=== PATIENT | male | born 1955 | race Caucasian/White ===

== ENCOUNTER 2017-06-01 09:18 | Emergency (ER) | payer OTHER ==
[2017-06-01 09:59] VITALS: BP 137/82
--- NOTE | 2017-06-01 10:28 | UC ---
Bite Injury/Animal HPI - HPI Summary HPI Summary: Pt presents with complaints of concern for retained tick part in right leg. Pt state felt a tick on his leg - pulled off yesterday. Pt states last evening he thought there was a retained part and so started digging. Pt unsure but concerned continues with retained part. Little discomfort Pt unsure when received last tdap PT states took 1 time doxy for tick bite earlier this week - states current wound tick was "crushed" while trying to remove and pt is concerned for lyme Not immunocompromised Pt's medications reviewed this visit - History of Current Complaint Chief Complaint: [place]CSkin Stated Complaint: TICK BITE Time Seen by Provider: 06/01/17 10:08 Hx Obtained From: Patient Severity Currently: None Onset/Duration: Gradual Onset Type of Bite: Wild Animal - Risk Factors Infection/Sepsis Risk Factors: Delay in Initial Treatment - Allergies/Home Medications Allergies/Adverse Reactions: Allergies Allergy/AdvReac Type Severity Reaction Status Date / Time No Known Allergies Allergy Verified 06/01/17 09:59 Home Medications: Home Medications Chlorthalidone TAB* [Hygroton TAB*] 50 mg PO DAILY 06/01/17 [History Confirmed 06/01/17] Ramipril CAP* [Altace CAP*] 10 mg PO DAILY 06/01/17 [History Confirmed 06/01/17] traZODone TAB* [Desyrel TAB*] 50 mg PO BEDTIME 06/01/17 [History Confirmed 06/01] PMH/Surg Hx/FS Hx/Imm Hx Previously Healthy: Yes - Surgical History Surgical History: None - Social History Occupation: Retired Lives: With Family Alcohol Use: Occasionally Substance Use Type: Marijuana Smoking Status (MU): Former Smoker Review of Systems Constitutional: Negative Skin: Other - erythema RLE All Other Systems Reviewed And Are Negative: Yes Physical Exam Triage Information Reviewed: Yes Vital Signs: Initial Vital Signs Temp 98.0 F 06/01/17 09:53 Pulse 69 06/01/17 09:53 Resp 18 06/01/17 09:53 BP 137/82 06/01/17 09:53 Pulse Ox 98 06/01/17 09:53 Eye Exam: Normal Eyes: Negative: Discharge ENT: Positive: Hearing grossly normal Respiratory: Positive: No respiratory distress, No accessory muscle use Cardiovascular: Positive: Other: - 2+ popliteal, pt Musculoskeletal Exam: Normal Neurological Exam: Normal Psychological Exam: Normal Skin: Positive: Other - right lateral aspect of knee Pt with yonas size abraison with central appearance of puncture wound No drainage wound cleansed with cholhexadine - no retained parts noted under magnification Bite Injury Course/Dx - Course Course Of Treatment: Pt with tick removed by him to right leg. Pt concerned for retained part - none noted on magnified exam. Pt tdap utd. s/w pt regarding prophylaxis. Will give doxy 200mg x 1. wound care reviewed. Pt comfortable with plan - Differential Dx/Diagnosis Provider Diagnoses: tick bite Discharge - Discharge Plan Condition: Stable Disposition: HOME Prescriptions: DOXYcycline CAP(*) [DOXYcycline 100MG CAP(*)] 200 mg PO ONCE #2 cap Patient Education Materials: Tick Bite (ED), Abrasion (ED) Referrals: Dottie Jenkins MD [Primary Care Provider] - Additional Instructions: - keep are clean and dry. okay to wash with warm, soap watery 2 times a day - cover with a thin layer of antibiotic ointment (neosporin, polysporin) and bandage - Take doxycycline x 1 dose as prescribed - call your doctor or return with questions or concerns - discuss your tetanus status with your primary doctor
== END 2017-06-01 10:30 | disposition home or self-care (01) ==
LOC: UCEAST 09:18
DX: B02.9 Zoster without complications (principal); F17.200 Nicotine dependence, unspecified, uncomplicated
CPT/HCPCS: 99212; G0463

== ENCOUNTER 2018-08-20 08:49 | Day surgery (SDC) | payer OTHER ==
[~2018-08-20 08:49] MED LIST: Acetaminophen TAB* 325 MG PO PRN; Buffered Lidocaine 1% SYRIN* 1 ML/SYRINGE INTRADERM ONE
[2018-08-20] MEDS ORDERED: Midazolam* 1 MG/ML 5 ML VIAL (5 MG) ONE (10:13)
[2018-08-20] MEDS ORDERED: fentaNYL* 50 MCG/ML 2 ML VIAL (100 MCG VIAL) ONE (10:32)
[2018-08-20] MEDS ORDERED: Lidocaine 2% EPI 1:200000 MPF*10-20 ML VIAL ONE (10:36)
[2018-08-20] MEDS ORDERED: Cyclopentolate 1% OPTH.SOL* 2 ML BTL ONE (10:36)
[2018-08-20] MEDS ORDERED: acetaZOLAMIDE TAB* 250 MG ONE (10:36)
[2018-08-20] MEDS ORDERED: Ketorolac 0.5% OPHTH (NF) 0.5 % 5 ML BTL ONE (10:36)
[2018-08-20] MEDS ORDERED: Neomycin/Polymy/Dex OPTH.SUSP* MAXITROL 0.1% 5 ML ONE (10:36)
[2018-08-20] MEDS ORDERED: Lidocaine 1%* 5 ML VIAL ONE (10:36)
[2018-08-20] MEDS ORDERED: Phenylephrine 2.5% OPTH.SOL* 2 ML BTL ONE (10:36)
[2018-08-20] MEDS ORDERED: Povidone Iodine 5% OPTH* 30 ML BTL ONE (10:36)
[2018-08-20] MEDS ORDERED: Proparacaine 0.5% OPHTH.SOL* 15 ML BTL ONE (10:37)
[2018-08-20 11:02] VITALS: BP 119/83
--- NOTE | 2018-08-20 12:27 | OP ---
OPERATIVE NOTE: DATE OF OPERATION: 08/20/18 DATE OF : 57 SURGEON: Hammad Landis M.D. PREOPERATIVE DIAGNOSIS: Cataract, left eye. POSTOPERATIVE DIAGNOSIS: Cataract, left eye. OPERATIVE PROCEDURE: Extracapsular cataract extraction with intraocular lens implant, left eye. PROCEDURE: The patient was brought to the operating room after being given 1/2% Alcaine with epineph rine drops in the preoperative area. The eye was prepped and draped in the usual sterile fashion. S terile drape and eyelid speculum were placed. Again, topical 1/2% Alcaine with epinephrine was given . A paracentesis incision was made at the 3 o'clock position with the No.75 blade. Clear cornea inc ision 2.2 x 2.2-mm was created at the 6 o'clock position starting at the anterior limbus using the 2. 2-mm keratome. The anterior chamber was irrigated with 0.4 mL of 1% non-preservative intracameral li docaine and filled with DisCoVisc. A capsulorrhexis was completed using the cystotome and the Utrata forceps. Hydrodissection was performed with balanced salt solution. The lens nucleus was removed wi th the Phacoemulsification handpiece without incident. Cortex was removed with the irrigation-aspira tion handpiece. The capsular bag was re-inflated using DisCoVisc and an SN6AT3 22.5 implant was inse rted with the shooter, oriented to 35 degree meridian. The horizontal reference welsh were made with the patient in the preoperative area in the seated position. The irrigation-aspiration handpiece was used to remove all residual DisCoVisc. The eye was refilled with balanced salt solution and the wou nd checked and found to be watertight. Topical Maxitrol drops were given. [id number]/[facility] #: [id number]
== END 2018-08-20 11:07 | disposition home or self-care (01) ==
LOC: OREAST 08:49
PROVIDERS: ATTEND Specialist
DX: H25.12 Age-related nuclear cataract, left eye (principal); H33.103 Unspecified retinoschisis, bilateral; I10 Essential (primary) hypertension; E78.00 Pure hypercholesterolemia, unspecified
CPT/HCPCS: A9270-GY; J2250; J3010; V2787